=== PATIENT | male | born 1980 | race Caucasian/White ===

== ENCOUNTER 2017-12-03 12:53 | Emergency (ER) | payer OTHER ==
[~2017-12-03] VITALS: Ht 175.3 cm; Wt 73.9 kg
[~2017-12-03 12:53] MED LIST: AMOX1TAB12 PO; IMODIUM A-D2 MG PO; KETO10TA2 PO; PEPCID40 MG PO; PHENERGAN25 MG PO; RELAFEN500 MG; VALTREX1000 MG
== END 2017-12-03 15:11 | disposition home or self-care (01) ==
LOC: ER 12:53
DX: S60.222A Contusion of left hand, initial encounter (principal); S40.011A Contusion of right shoulder, initial encounter; S60.211A Contusion of right wrist, initial encounter; V49.9XXA Car occupant (driver) (passenger) injured in unspecified traffic accident, initial encounter; Y93.89 Activity, other specified; Y92.488 Other paved roadways as the place of occurrence of the external cause; Y99.8 Other external cause status

== ENCOUNTER 2022-07-27 13:05 | Emergency (ER) | payer OTHER ==
[~2022-07-27] VITALS: Ht 175.3 cm; Wt 77.1 kg
[2022-07-27] MEDS ORDERED: NORFLEX100MG PO (15:53)
[2022-07-27] MEDS ORDERED: KETO10TA2 PO (15:53)
== END 2022-07-27 15:59 | disposition home or self-care (01) ==
LOC: ER 13:05
DX: S70.02XA Contusion of left hip, initial encounter (principal); S29.9XXA Unspecified injury of thorax, initial encounter; W10.2XXA Fall (on)(from) incline, initial encounter; Y93.9 Activity, unspecified; Y92.9 Unspecified place or not applicable

== ENCOUNTER 2022-09-30 10:48 | Emergency (ER) | payer OTHER ==
[~2022-09-30] VITALS: Ht 175.3 cm; Wt 79.4 kg
[~2022-09-30 10:48] MED LIST changes: +NORFLEX100MG PO
== END 2022-09-30 15:05 | disposition home or self-care (01) ==
LOC: ER 10:48
DX: K52.9 Noninfective gastroenteritis and colitis, unspecified (principal)

== ENCOUNTER 2025-06-16 23:19 | Emergency (ER) | payer OTHER ==
[~2025-06-16] VITALS: Ht 175.3 cm; Wt 71.7 kg
[2025-06-17] MEDS ORDERED: CEFTRIAXONE SODIUM 1,000 MG VIAL IM ONE (00:15)
[2025-06-17] MEDS ORDERED: KETOROLAC TROMETHAMINE 60 MG VIAL IM ONE ×2 (00:15→01:29)
[2025-06-17] MEDS ORDERED: CEFTRIAXONE SODIUM 1,000 MG VIAL ONE (01:30)
[2025-06-17 01:53] LABS: BASO % 0.5 % (0.1-1.2); EOS # 0.24 (0.04-0.54); EOS % 2.8 % (0.7-7.0); LYMPH # 2.63 (1.18-3.74); LYMPH % 31.1 % (19.3-53.1); MEAN PLATELET VOLUME 9.90 fl (9.4-12.4); MONO # 0.60 (0.24-0.82); MONO % 7.1 % (4.7-12.5); NEUT # 4.94 (1.56-6.13); NEUT % 58.4 % (34.0-71.1); RED CELL DISTRIBUTION WIDTH 12.1 % (11.6-14.4)
[2025-06-17 01:56] LABS: ERYTHROCYTE SEDIMENTATION RATE 20 mm/hr (0-15)
[2025-06-17 02:21] LABS: ALT/SGPT 26 U/L (12-78); AST/SGOT 27 U/L (15-37); BILIRUBIN TOTAL 0.41 mg/dL (0.3-1.2); BUN CREA RATIO 15 (7.0-25.0); CREATININE SERUM 1.21 mg/dL (0.70-1.30); GFR 65.14; GLOBULINA 4.2 G/DL (2.4-3.5); GLUCOSE FASTING 95 mg/dL (65-100); OSMOLALITY SERUM 283 MOSM/KG (275-295)
[2025-06-17] MEDS ORDERED: PEPCID AC20 MG PO (02:40)
[2025-06-17] MEDS ORDERED: CEFUROXIME500 MG PO (02:40)
== END 2025-06-17 03:56 | disposition home or self-care (01) ==
LOC: ER 23:20
PROVIDERS: General Practice
DX: M79.606 Pain in leg, unspecified (principal)